=== PATIENT | female | born 1940 | race Caucasian/White ===

== ENCOUNTER 2017-01-17 22:31 | Emergency (ER) | payer OTHER, MEDICARE ==
[~2017-01-17] VITALS: Ht 162.6 cm; Wt 72.6 kg
--- NOTE | 2017-01-17 23:12 | ED AMS/SEIZURE/WEAK/DIZZY ---
History of Present Illness General Chief Complaint: Dizziness Stated Complaint: BIBA POSITIONAL VERTIGO Source: patient, old records, EMS Exam Limitations: no limitations Vital Signs & Intake/Output Vital Signs & Intake/Output Vital Signs Date Time Temp Pulse Resp B/P B/P Pulse O2 O2 Flow FiO2 Mean Ox Delivery Rate 01/18 0016 96.0 62 20 159/72 99 Room Air 01/17 2344 Room Air 01/17 2235 98.0 66 16 168/81 98 Room Air ED Intake and Output 01/18 0000 01/17 1200 Intake Total 1000 Output Total Balance 1000 Intake, IV 1000 Patient 160 lb Weight Weight Reported by Patient Measurement Method Allergies Coded Allergies: No Known Allergies (01/17/17) Triage Note: HX POSITIONAL VERTIGO WITH 2-3 EPISODES TODAY. BENT OVER AND BECAME DIZZY AND UNSTEADY APPROX 8:30PM. DENIES LOC, FALL, OR PASSING OUT. DENIES N/V/D. ACCUCHECK 154. FELT DIZZY WITH TRANSFER FROM STRETCHER TO WHEELCHAIR Triage Nurses Notes Reviewed? 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 Patient states that she gets symptoms a few months and they last a few seconds and then go away. Patient states she has a few days if the symptoms and then they go away for a few more months. The symptoms have been happening more more frequently. Her symptoms started again today. She describes episodic spinning dizziness and feeling off balance. The symptoms last for a few seconds and go away. Tonight the symptoms happened again and this time it made her feel anxious. Patient does suffer from anxiety and takes Xanax when necessary. Patient wanted to make sure everything was okay so called 911. Patient denies any chest pain or shortness of breath. There is no nausea or vomiting. There is no headache. Past History Travel History Traveled to [place] past 21 day No Medical History Any Pertinent Medical History? see below for history Neurological: NONE EENT: benign positional vertigo Cardiovascular: NONE Respiratory: NONE Gastrointestinal: NONE Hepatic: NONE Renal: NONE Musculoskeletal: NONE Psychiatric: NONE Endocrine: NONE Blood Disorders: NONE Surgical History Surgical History: non-contributory Psychosocial History What is your primary language German Tobacco Use: Never used ETOH Use: denies use Illicit Drug Use: denies illicit drug use Family History Hx Contributory? No Review of Systems Review of Systems Constitutional: Reports: no symptoms. EENTM: Reports: no symptoms. Respiratory: Reports: no symptoms. Cardiovascular: Reports: no symptoms. GI: Reports: no symptoms. Genitourinary: Reports: no symptoms. Musculoskeletal: Reports: no symptoms. Skin: Reports: no symptoms. Neurological/Psychological: Reports: see HPI. Hematologic/Endocrine: Reports: no symptoms. Immunologic/Allergic: Reports: no symptoms. All Other Systems: Reviewed and Negative Physical Exam Physical Exam General Appearance: well developed/nourished, alert, awake, anxious Head: atraumatic, normal appearance Eyes: Bilateral: PERRL, EOMI. Ears, Nose, Throat: normal pharynx, normal ENT inspection, hearing grossly normal Neck: normal inspection, supple, full range of motion Respiratory: normal breath sounds, chest non-tender, no respiratory distress, lungs clear Cardiovascular: regular rate/rhythm, normal peripheral pulses Gastrointestinal: normal bowel sounds, soft, non-tender Back: normal inspection, normal range of motion Extremities: normal range of motion Neurologic/Psych: no motor/sensory deficits, awake, alert, oriented x 3, normal gait, normal mood/affect Skin: intact, normal color, warm/dry Lymphatic: no anterior cervical kimberly Core Measures ACS in differential dx? No CVA/TIA Diagnosis: No Severe Sepsis Present: No Septic Shock Present: No Progress Differential Diagnosis: benign positional vertigo, electrolyte imbalance Plan of Care: Orders Procedure Date/time Status MISTAKE 01/18 2312 Active TROPONIN LEVEL 01/18 2312 Complete COMPREHENSIVE METABOLIC PANEL 01/18 2312 Complete CBC WITHOUT DIFFERENTIAL 01/18 2312 Complete EKG 01/18 2312 Active Laboratory Tests 01/17/175: Anion Gap 10, Estimated GFR > 60, BUN/Creatinine Ratio 20.0, Glucose 126 H, Calcium 9.9, Total Bilirubin 0.4, AST 26, ALT 39, Alkaline Phosphatase 68, Troponin I < 0.01, Total Protein 7.0, Albumin 4.5, Globulin 2.5, Albumin/ Globulin Ratio 1.8, CBC w Diff NO MAN DIFF REQ, RBC 4.30, MCV 94.3, MCH 31.4 H, RDW 13.5, MPV 9.0, Gran % 64.0, Lymphocytes % 25.1, Monocytes % 8.5, Eosinophils % 1.8, Basophils % 0.6, Absolute Granulocytes 4.0, Absolute Lymphocytes 1.6, Absolute Monocytes 0.5, Absolute Eosinophils 0.1, Absolute Basophils 0, PUBS MCHC 33.3 Initial ED EKG: NSR, nonspecific ST T wave chg Prior EKG: unchanged Comments: Patient updated on her lab results. Patient feels that it might be anxiety. Patient is to take Xanax but did not take it tonight. Patient took a dose of her own Xanax and we will reevaluate. Patient is feeling much better after the Xanax. Patient is to question sleep in the emergency department until her son come pick her up at 6 AM. Patient is able to ambulate in the emergency department without difficulty. Departure Departure Disposition: HOME OR SELF CARE Condition: Stable Clinical Impression Primary Impression: Anxiety Secondary Impressions: Vertigo Referrals: AMBER SMALL,RADHA Fregoso (PCP/Family) Additional Instructions: REUTRN FOR ANY CONCERNS Departure Forms: Customer Survey General Discharge Information
[2017-01-18 00:15] LABS: ABSOLUTE BASOPHIL COUNT 0 /CUMM (0.0-0.2); ABSOLUTE EOSINOPHIL COUNT 0.1 /CUMM (0.0-0.7); ABSOLUTE LYMPH COUNT 1.6 /CUMM (1.2-3.4); ABSOLUTE MONOCYTE COUNT 0.5 /CUMM (0.10-0.60); BASOPHIL % 0.6 % (0.0-2.0); EOSINOPHIL % 1.8 % (0-5); HEMATOCRIT 40.5 % (37-47); MEAN CORPUSCULAR HGB 31.4 PG (27.0-31.0); MEAN CORPUSCULAR HGB CONC 33.3 G/DL (33.0-37.0); MEAN CORPUSCULAR VOLUME 94.3 FL (81.0-99.0); PLATELET COUNT 196 /CUMM (130-400); RBC DISTRIBUTION WIDTH 13.5 % (11.5-14.5); WHITE BLOOD CELL COUNT 6.2 /CUMM (4.8-10.8)
[2017-01-18 06:26] VITALS: BP 140/79
== END 2017-01-18 06:29 ==
LOC: ERH 22:31
PROVIDERS: Emergency Medicine
DX: F41.9 Anxiety disorder, unspecified (principal); R42 Dizziness and giddiness
CPT/HCPCS: 93005; 93010